=== PATIENT | female | born 1970 | race Caucasian/White ===

== ENCOUNTER 2018-08-18 06:07 | Day surgery (SDC) | payer MEDICAID ==
[2018-08-11 07:17] VITALS: BMI 21.8
[2018-08-18] MEDS ORDERED: Midazolam 2 MG/2 ML VIAL ONE (09:04)
[2018-08-18] MEDS ORDERED: Propofol 10 mg/ml Inj (20 ML) ONE (09:04)
[2018-08-18] MEDS ORDERED: HYDROmorphone 0.5 mg/0.5 ml ISec IVP PRN (09:39)
[2018-08-18 11:07] VITALS: RESP 18; TEMP 97.4
[2018-08-18 12:19] VITALS: BP 118/66; PULSE 71; O2SAT 98
--- NOTE | 2018-08-18 21:10 | OP ---
PROCEDURE DATE: 08/18/2018 PREOPERATIVE DIAGNOSES: This is a 48-year-old 2, para 2 with endometrial thickening, postmenopausal bleeding, and history of breast cancer. POSTOPERATIVE DIAGNOSES: This is a 48-year-old 2, para 2 with endometrial thickening, postmenopausal bleeding, and history of breast cancer. SURGEON: Rell Peterson MD COSTUME SPECIALIST: None. ANESTHESIA: General anesthesia. ANESTHESIOLOGIST: COMPLICATIONS: None. PROCEDURE PERFORMED: MyoSure, dilatation and curettage, hysteroscopy. DESCRIPTION OF PROCEDURE: After informed consent was obtained, the patient was brought to the operating room and placed on the table where general anesthesia was given. Once the anesthesia was given, the patient was prepped and draped in a normal sterile fashion. Examination of the uterus revealed it to be 6 weeks' size. Anterior lip of the cervix was grasped with a tenaculum. Gentle dilatation of the cervix was done and then hysteroscope was introduced and found there was a small fibroid on the posterior wall of the uterus. Pictures were taken. After that, the decision was to use a MyoSure. MyoSure was used to remove the fibroid. After that, sharp curettage of the endometrium was done and was sent to pathology. Then, the ECC was done and sent to the pathology. After that, the hysteroscope was then introduced and found to be hemostatic. After that, the tenaculum was taken out. The patient tolerated the procedure well. Lap, sponge, and instrument counts were correct x2 at the end of the case. The deficit was 100 mL. EBL was 20 mL. Rell Peterson MD
== END 2018-08-18 12:15 | disposition home or self-care (01) ==
LOC: C.SDS 06:07
PROVIDERS: ATTEND Obstetrics & Gynecology
DX: D25.0 Submucous leiomyoma of uterus (principal); N95.0 Postmenopausal bleeding; R93.89 Abnormal findings on diagnostic imaging of other specified body structures; Z85.3 Personal history of malignant neoplasm of breast
CPT/HCPCS: 58561; 88305; J1885; J2250; J2405; J2704; J3010